=== PATIENT | male | born 1970 | race African-American/Black ===

== ENCOUNTER 2017-01-25 01:36 | Emergency (ER) ==
[2017-01-25 01:37] VITALS: BMI 21.9
[2017-01-25 01:46] VITALS: BP 155/89; TEMP 97.6
[2017-01-25] MEDS ORDERED: ZOFRAN ODT PO STA (02:19)
[2017-01-25] MEDS ORDERED: TYLENOL PO STA (02:23)
[2017-01-25 02:37] LABS: BASOPHILS # (AUTO) 0.1 K/uL (0-0.2); EOSINOPHILS # (AUTO) 0.4 K/ul (0.0-0.7); HEMOGLOBIN 13.4 g/dl (14.0-18.0); IMMATURE GRANULOCYTE % (AUTO) 0.1 % (0.0-5.0); LYMPHOCYTES # (AUTO) 2.3 K/uL (0.60-3.4); LYMPHOCYTES % (AUTO) 30.7 (10.0-50.0); MEAN CORPUSCULAR HEMOGLOBIN 28.7 pg (27.0-31.0); MEAN CORPUSCULAR HGB CONC 34.4 (31.8-35.4); MEAN CORPUSCULAR VOLUME 83.5 fl (80.0-94.0); MONOCYTES # (AUTO) 0.5 K/uL (0.4-2.0); MONOCYTES % (AUTO) 6.1 (0-10); NEUTROPHILS # (AUTO) 4.2 K/ul (2.0-6.9); NEUTROPHILS % (AUTO) 57.1; PLATELET COUNT 123 10^3/uL (140-440); RED BLOOD COUNT 4.67 10^6/ul (4.70-6.10); WHITE BLOOD COUNT 7.33 K/ul (4.2-10.2)
[2017-01-25 02:53] LABS: FLU INTERNAL QC INTERNAL QC VALID; RAPID FLU A NEGATIVE (NEGATIVE); RAPID FLU B NEGATIVE (NEGATIVE)
[2017-01-25 02:56] LABS: ALBUMIN 3.8 g/dL (3.4-5.0); ALBUMIN/GLOBULIN RATIO 1.41; ANION GAP 12.6; BILIRUBIN,TOTAL 0.55 mg/dL (0.00-1.20); BUN/CREATININE RATIO 9.37; CALCIUM 9.4 mg/dL (8.2-10.2); CREATININE 1.28 mg/dL (0.60-1.10); POTASSIUM 3.6 mmol/L (3.5-5.1); TOTAL PROTEIN 6.5 g/dL (6.4-8.2)
--- NOTE | 2017-01-25 02:57 | ED.PDOC ---
General ED Provider: Dr. DICK GAINES Chief Complaint: Abdominal Pain Stated Complaint: Patient is a 46 year old male who comes to the Er with have a queez stomach for 2 hours. Also reports nausea and body aches with lower extremity pains and some lower back pain. Has been exposed to family members with the flu. Time Seen by Physician: 02:19 Mode of Arrival: Walk-In Information Source: Patient Primary Care Provider: HOUSTON CROWDER Nursing and Triage Documentation Reviewed and Agree: Yes Review of Systems - Review Of Systems Constitutional: Reports: Loss of appetite. Denies: Chills, Fever Eyes: Reports: No symptoms Ears, Nose, Mouth, Throat: Reports: No symptoms Respiratory: Reports: No symptoms Cardiac: Reports: No symptoms GI: Reports: Nausea, Poor appetite. Denies: Abdominal pain : Reports: No symptoms Musculoskeletal: Reports: Back pain, Joint pain, Muscle pain Skin: Reports: No symptoms Neurological: Reports: Headache Endocrine: Reports: No symptoms Hematologic/Lymphatic: Reports: No symptoms All Other Systems: Reviewed and Negative Past Medical History - Past Medical History Endocrine: Reports: None Cardiovascular: Reports: None Respiratory: Reports: None Hematological: Reports: None Gastrointestinal: Reports: None Genitourinary: Reports: None Neuro/Psych: Reports: None Musculoskeletal: Reports: None Cancer: Reports: None - Surgical History General Surgical History: Reports: None - Family History Family History: Reports: None - Social History Smoking Status: Never smoker Hx Substance Use: No Alcohol Screening: Occasionally - Immunizations Tetanus Shot up to Date: Yes Physical Exam - Physical Exam Appearance: Ill-appearing, Thin Ill-appearing: Mild Pain Distress: Mild Eyes: MAURO, EOMI, Conjunctiva clear ENT: Ears normal, Nose normal, Oropharynx normal Neck: Supple Respiratory: Airway patent, Breath sounds clear, Breath sounds equal, Respirations nonlabored Cardiovascular: RRR, Pulses normal, No rub, No murmur GI/: Soft, Nontender Musculoskeletal: Normal strength, ROM intact, No edema, No calf tenderness Skin: Warm, Dry, Normal color Neurological: Sensation intact, Motor intact, Reflexes intact, Cranial nerves intact, Alert, Oriented Psychiatric: Anxious Critical Care Note - Critical Care Note Total Time (mins): 0 Course - Course Orders, Labs, Meds: Orders Category Date Time Status CBC W/ AUTO DIFF Stat LAB 01/25/17 02:17 Ordered COMPREHENSIVE METABOLIC PANEL Stat LAB 01/25/17 02:17 Ordered RAPID FLU A/B Stat LAB 01/25/17 02:17 Uncollected STREP SCREEN Stat LAB 01/25/17 02:17 Uncollected Vital Signs: Temp Pulse Resp BP Pulse Ox 01/25/17 01:37 97.6 F 63 20 155/89 H 98 Departure - Departure Time of Disposition: 03:10 Disposition: HOME SELF-CARE Discharge Problem: Viral syndrome Instructions: Viral Syndrome (ED) Condition: Fair Pt referred to PMD for follow-up: Yes Additional Instructions: Push fluids Take Nausea medications as prescribed. Follow up with PCP in 1-2 days Return if worse Prescriptions: Promethazine HCl [Phenergan Tab] 25 mg PO Q6H PRN #15 tablet PRN Reason: Nausea / Vomiting Allergies/Adverse Reactions: Allergies aspirin [From Altagracia-[place]] Adverse Reaction (Verified 01/25/17 01:46) citric acid [From Altagracia-[place]] Adverse Reaction (Verified 01/25/17 01:46) Penicillins Adverse Reaction (Verified 05/11/13 23:05) sodium bicarbonate [From Altagracia-[place]] Adverse Reaction (Verified 01/25/17 01:46 ) Home Medications: Ambulatory Orders 1 [No Reported Medications] 0 mg PO DAILY 05/11/13 Promethazine HCl [Phenergan Tab] 25 mg PO Q6H PRN #15 tablet 01/25/17 Disposition Discussed With: Patient
[2017-01-25 03:18] LABS: AMYLASE 118 U/L (25-115); LIPASE 34 U/L (8-78)
== END 2017-01-25 03:35 | disposition home or self-care (01) ==
LOC: ED 01:36
DX: B34.9 Viral infection, unspecified (principal)
CPT/HCPCS: 36415; 80053; 82150; 83690; 85025; 87651; 87804; 87880; 99283

== ENCOUNTER 2018-01-10 10:53 | Outpatient (CLI) ==
[2013-05-11 23:01] VITALS: TEMP 97.6
== END 2018-01-10 10:54 | disposition home or self-care (01) ==
LOC: LAB 10:53
PROVIDERS: ATTEND Nurse Practitioner Family
DX: R50.9 Fever, unspecified (principal)
CPT/HCPCS: 87804

== ENCOUNTER 2018-05-19 22:58 | Emergency (ER) ==
[2018-05-19 23:11] VITALS: BP 155/91; TEMP 98; BMI 19.1
--- NOTE | 2018-05-19 23:37 | ED.PDOC ---
General ED Provider: Dr. DICK GAINES Chief Complaint: Earache Stated Complaint: Patient is a 47 year old male who comes to the Er with Left ear pain. States he feels like there is something in there. Has had symtoms for 7 days. Has tired to use over the counter oils but has not improved. Time Seen by Physician: 23:35 Mode of Arrival: Walk-In Information Source: Patient Primary Care Provider: DUY POLLOCK Nursing and Triage Documentation Reviewed and Agree: Yes Does patient meet sepsis criteria?: Yes If yes, has appropriate treatment been initiated?: No System Inflammatory Response Syndrome: Not Applicable Sepsis Protocol: For patient's 13 years and over: Temp is 96.8 and below OR 101 and greater Pulse >90 BPM Resp >20/minute Acutely Altered Mental Status Are patient's symptoms suggestive of a new infection, such as: -Pneumonia -Skin, Soft Tissue -Endocarditis -UTI -Bone, Joint Infection -Implantable Device -Acute Abdominal Infection -Wound Infection -Meningitis -Blood Stream Catheter Infection -Unknown EENT Complaint Exam - Ear Complaint/Exam Onset/Duration: 7 days Symptoms Are: Still present Timing: Constant Initial Severity: Mild Current Severity: Mild Character: Reports: Dull pain Aggravating: Reports: Tugging on ear Associated Signs and Symptoms: Reports: Pain to external ear. Denies: Ear trauma, Ear swelling, Discharge, Fever, Hearing loss, Bleeding, Sore throat, Headache, URI symptoms, Foreign body sensation, Rash, Pain to external face Ear Surgical History: None Vesicles to External Pinna: No Vesicles to Tragus: No TMJ Tenderness: None Mastoid Tenderness: None Tragal Tenderness: None Material in Canal: Present: Cerumen impaction Differential Diagnoses: Cerumen Impaction, Otitis Media Review of Systems - Review Of Systems Constitutional: Reports: No symptoms Eyes: Reports: No symptoms Ears, Nose, Mouth, Throat: Reports: Ear pain Respiratory: Reports: No symptoms Cardiac: Reports: No symptoms GI: Reports: No symptoms : Reports: No symptoms Musculoskeletal: Reports: No symptoms Skin: Reports: No symptoms Neurological: Reports: No symptoms Endocrine: Reports: No symptoms Hematologic/Lymphatic: Reports: No symptoms All Other Systems: Reviewed and Negative Past Medical History - Past Medical History Endocrine: Reports: None Cardiovascular: Reports: None Respiratory: Reports: None Hematological: Reports: None Gastrointestinal: Reports: None Genitourinary: Reports: None Neuro/Psych: Reports: None Musculoskeletal: Reports: None Cancer: Reports: None - Surgical History General Surgical History: Reports: None - Family History Family History: Reports: None - Social History Smoking Status: Never smoker Hx Substance Use: No Alcohol Screening: Occasionally - Immunizations Tetanus Shot up to Date: Yes Physical Exam - Physical Exam Appearance: Well-appearing, No pain distress, Well-nourished Eyes: MAURO, EOMI, Conjunctiva clear ENT: Nose normal Respiratory: Airway patent, Breath sounds clear, Breath sounds equal, Respirations nonlabored Cardiovascular: RRR, Pulses normal, No rub, No murmur GI/: Soft, Nontender, No masses, Bowel sounds normal, No Organomegaly Musculoskeletal: Normal strength, ROM intact, No edema, No calf tenderness Skin: Warm, Dry, Normal color Neurological: Sensation intact, Motor intact, Reflexes intact, Cranial nerves intact, Alert, Oriented Psychiatric: Affect appropriate, Mood appropriate Procedures - Cerumen Removal Location: Left ear Instrument Used: Wax curette, Syringe Irrigation Used: Yes (500ml ) Results: Wax (partially removed. Some left over due to difficulty removing. ) Pain Successfully Reduced: Yes Critical Care Note - Critical Care Note Total Time (mins): 0 Course - Course Vital Signs: Temp Pulse Resp BP Pulse Ox 05/19/18 22:58 98 F 62 18 155/91 H 98 Departure - Departure Time of Disposition: 00:12 Disposition: HOME SELF-CARE Discharge Problem: Otalgia of left ear, Impacted cerumen of both ears Instructions: Cerumen Impaction (ED) Condition: Stable Pt referred to PMD for follow-up: Yes IPMP verified?: No Additional Instructions: Use Debrox 3 drops to both ears three times a day for 7 days Then follow up with you clinic to have your ears cleaned out Prescriptions: Carbamide Peroxide [Debrox] 1 drop OT 2-3XD #3 drops Allergies/Adverse Reactions: Allergies citric acid [From Altagracia-[place]] Adverse Reaction (Verified 05/19/18 23:06) Penicillins Adverse Reaction (Verified 05/19/18 23:06) sodium bicarbonate [From Altagracia-[place]] Adverse Reaction (Verified 05/19/18 23:06 ) Home Medications: Ambulatory Orders 1 [No Reported Medications] 0 mg PO DAILY 05/11/13 Carbamide Peroxide [Debrox] 1 drop OT 2-3XD #3 drops 05/20/18 Disposition Discussed With: Patient
[2018-05-20] MEDS ORDERED: TYLENOL PO STA (00:12)
== END 2018-05-20 00:20 | disposition home or self-care (01) ==
LOC: ED 22:58
DX: H92.02 Otalgia, left ear (principal); H61.23 Impacted cerumen, bilateral
CPT/HCPCS: 99282